=== PATIENT | female | born 1950 | race Caucasian/White ===

== ENCOUNTER 2020-08-21 08:50 | Day surgery (SDC) | payer MEDICARE, OTHER ==
[~2020-08-21] VITALS: Ht 170.2 cm; Wt 70.9 kg
--- NOTE | ~2020-08-21 | OR ---
[facility] [address] [place], [place] [address] Draft DATE OF OPERATION: 08/21/2020 SURGEON: Alverto Keenan MD LOCATION: [facility] Outpatient Surgery. PREOPERATIVE DIAGNOSIS: Left vocal cord lesion with dysphagia, hoarseness. POSTOPERATIVE DIAGNOSIS: Left vocal cord lesion with dysphagia, hoarseness. PROCEDURE: Direct laryngoscopy, biopsy of left vocal cord lesion, and an esophagoscopy. ANESTHESIA: General orotracheal; HUMBLE Rosa. PREOPERATIVE HISTORY: Mine is a 69-year-old lady with history of a vocal cord lesion several years ago, which was causing hoarseness. Biopsy in the OR was benign. She has had continued hoarseness. Followup has shown thickening of the left vocal cord. She was taken to the operating room for direct laryngoscopy and cervical esophagoscopy for dysphagia. OPERATIVE PROCEDURE AND FINDINGS: After informed consent, the patient was taken to the operating room and placed in supine position where general orotracheal anesthesia was induced. The patient and procedure were verified. The patient was repositioned. Anterior commissure laryngoscope was used to visualize the hypopharynx and larynx. Everything normal, except the left vocal cord. Nearly the whole length of the vocal cord was thickened, edematous. No leukoplakia per se, just thickened slightly hyperkeratotic mucosa. The left vocal cord was basically stripped. Lesion removed with the cup forceps sent to pathology in formalin. Minimal bleeding stopped afterwards. No other abnormalities in the larynx. Cervical esophagus scope was then passed down to about 20 cm from the incisors. No abnormalities seen looking in or out. No biopsies taken. Pharynx suctioned clear of blood secretions. The patient was then awakened, extubated, transported to recovery room in good condition. No complications. PATIENT NAME: MINE CHOWDARY OPERATIVE REPORT DATE OF : 54 REPORT #: [id number] PHYSICIAN: ALVERTO KEENAN MD PCP: NELLI SORIANO MD REPORT IS CONFIDENTIAL AND NOT TO BE RELEASED WITHOUT AUTHORIZATION [address] [place], [place] [address] Draft BLOOD LOSS: Minimal. SPECIMEN: Left vocal cord lesion to pathology. DRAINS: No drains. Alverto Keenan MD GC/MEGANL /[id number] Copies: ~ PATIENT NAME: MINE CHOWDARY OPERATIVE REPORT DATE OF : 54 REPORT #: [id number] PHYSICIAN: ALVERTO KEENAN MD PCP: NELLI SORIANO MD REPORT IS CONFIDENTIAL AND NOT TO BE RELEASED WITHOUT AUTHORIZATION
[~2020-08-21 08:50] MED LIST: FENOFIBRATE40 MG PO; HYDROCHLOROTHIA25 MG PO; LISINOPRIL40 MG PO; MELOXICAM15 MG PO; NEURONTIN100 MG PO; PROZAC10 MG PO; SIMVASTATIN20 MG PO; TRAZODONE HCL150 MG PO; TYLENOL325 MG PO; WELLBUTRIN SR100 MG
--- NOTE | 2020-08-21 10:49 | NUR ---
08/21/20 1049 Fany Senior 1034 PATIENT ARRIVES TO PACU UNRESPONSIVE TO PAIN. JAW THRUST BEING HELD TO MANAGE AIRWAY. MASK AT 10 LITERS. PATIENT HAS DECREASED RESP WITH SATS <70%. SYRUPER AT BEDSIDE. 1036 ORAL AIRWAY PLACED. RN CONTINUES TO HOLD JAW THRUST TO MAINTAIN AIRWAY. NON REBREATHER REPLACED MASK AT 15 LITERS. SATS <80%. ST DEPRESSION NOTED, NEW PER SYRUPER. NO NEW ORDERS. 1037 PATIENT CONTINUES TO BE UNRESPONSIVE TO PAIN. ORAL AIRWAY IN PLACE. RN CONTINUES TO HOLD JAW THRUST. NON-REBREATHER AT 15 LITERS. SATS >90%. 1040 PATIENT CONTINUES TO BE UNRESPONSIVE TO PAIN. ORAL AIRWAY IN PLACE, NO LONGER REQUIRES JAW THRUST. RESP EVEN AND UNLABORED, NONPREBREATHER CONTINUED AT [address] DEPRESSION IMPROVING, BUT NOT TO BASELINE. SYRUPER AWARE. 1045 PATIENT CONTINUES TO BE UNRESPONSIVE TO PAIN. ORAL AIRWAY IN PLACE. RESP EVEN AND UNLABORED, NON BREATHER CONTINUED AT [address] DEPRESSION PRESENT BUT IMPROVED. EKG ORDERED.
--- NOTE | 2020-08-21 12:45 | NUR ---
1120: PATIENT BACK IN DAY SURGERY ROOM FROM PACU. DENIES PAIN. DENIES NAUSEA. COFFEE GIVEN TO PATIENT PER REQUEST. VS CHECKED. IV SITE WNL. SCDs ON. CALL LIGHT WITHIN REACH. 1155: DISCHARGE INSTRUCTIONS GIVEN TO PATIENT. PATIENT TOLERATED COFFEE. PATIENT ASSISTED OOB AND TO WALK AROUND ROOM. GAIT STEADY. PATIENT GETTING DRESSED INDEPENDENTLY. 1220: PATIENT GIVEN SECOND CUP OF COFFEE. WALKED INDEPENDENTLY TO AND FROM BATHROOM. IV DC'D WNL. TIP INTACT. DRESSING APPLIED. PATIENT DISCHARGED TO HOME WITH DAUGHTER VIA WHEELCHAIR.
--- NOTE | 2020-08-23 13:43 | EKG ---
[facility] [address] [facility] [place], [place] [address] Signed Normal sinus rhythm Normal ECG No previous ECGs available Confirmed by DYLON RASHEED MD ([id number]) on 08/23/2020 1:43:33 PM Electronically Signed By: DYLON RASHEED MD 08/23/20 1343 PATIENT NAME: OLINDA CHOWDARY Electrocardiogram DATE OF : 54 PHYSICIAN: DYLON RASHEED MD REPORT #: [id number] REPORT IS CONFIDENTIAL AND NOT TO BE RELEASED WITHOUT AUTHORIZATION
--- NOTE | 2020-08-23 13:44 | EKG ---
[facility] [address] [facility] [place], [place] [address] Signed Normal sinus rhythm Low voltage QRS Nonspecific ST and T wave abnormality Prolonged QT Abnormal ECG When compared with ECG of 21-AUG-2020 09:19, (Unconfirmed) Nonspecific T wave abnormality, worse in Anterolateral leads Confirmed by DYLON RASHEED MD ([id number]) on 08/23/2020 1:43:48 PM Electronically Signed By: DYLON RASHEED MD 08/23/20 1344 PATIENT NAME: OLINDA CHOWDARY Electrocardiogram DATE OF : 54 PHYSICIAN: DYLON RASHEED MD REPORT #: [id number] REPORT IS CONFIDENTIAL AND NOT TO BE RELEASED WITHOUT AUTHORIZATION
--- NOTE | 2020-08-23 16:38 | PATH ---
[facility] [address] [place], [place] [address] Signed SPECIMEN(S): A LEFT VOCAL CORD BIOPSY SPECIMEN SOURCE: A. LEFT VOCAL CORD BIOPSY CLINICAL HISTORY: Pre: Hoarseness, dysphagia. Post: Direct laryngoscopy, cervical rigid esophagoscopy. FINAL PATHOLOGIC DIAGNOSIS: Vocal cord, left, biopsy: - Vocal cord nodule/polyp. - Negative for dysplasia or malignancy. NAL:cml:C2NR MICROSCOPIC EXAMINATION: Histologic sections of all submitted blocks are examined by light microscopy. These findings, together with the gross examination, support the pathologic diagnosis. GROSS DESCRIPTION: The specimen, labeled "CM," and designated on the requisition "left vocal cord biopsy," is received in formalin and consists of multiple fragments of pink-retana tissue (1.4 x 0.6 x 0.3 cm in aggregate). The specimen is submitted entirely in cassette A1. AC (under the direct supervision of a pathologist) The Gross Description was prepared using a voice recognition system. The report was reviewed for accuracy; however, sound-alike word errors, addition and/or deletions may occur. If there is any question about this report, please contact Client Services. PERFORMING LABORATORY: The technical component was performed by [facility], [address] [place] [id number] (Biblical Languages Professor: Bibiana Page MD; CLIA# [id number]). [facility], [address] [address] (CLIA# [id number]). Diagnostician: Adina Stevens MD Pathologist Electronically Signed 08/23/2020 PATIENT NAME: OLINDA CHOWDARY PATHOLOGY DATE OF : 54 REPORT #: [id number] PHYSICIAN: [facility] PCP: NELLI SORIANO MD REPORT IS CONFIDENTIAL AND NOT TO BE RELEASED WITHOUT AUTHORIZATION [address] [address] Signed Copies: ~ PATIENT NAME: OLINDA CHOWDARY PATHOLOGY DATE OF : 54 REPORT #: [id number] PHYSICIAN: [facility] PCP: NELLI SORIANO MD REPORT IS CONFIDENTIAL AND NOT TO BE RELEASED WITHOUT AUTHORIZATION
== END 2020-08-21 12:20 | disposition home or self-care (01) ==
LOC: OPS 08:50 → DS 08:50 → OPS 10:45
PROVIDERS: ATTEND Otolaryngology
PROC: 0CBV8ZX Excision of Left Vocal Cord, Via Natural or Artificial Opening Endoscopic, Diagnostic (ICD-10-PCS; principal; 2020-08-21 10:45)
DX: J38.2 Nodules of vocal cords (principal); R13.10 Dysphagia, unspecified; E78.00 Pure hypercholesterolemia, unspecified; Z87.891 Personal history of nicotine dependence; Z88.0 Allergy status to penicillin
CPT/HCPCS: 00320; 88305; 93005; 93010; 99406; J0330; J1100; J1885; J2250; J2405; J2704; J2765; J3010; J7121

== ENCOUNTER 2021-11-23 18:13 | Emergency (ER) | payer MEDICARE, OTHER ==
[~2021-11-23] VITALS: Ht 170.2 cm; Wt 70.8 kg
[2021-11-23] MEDS ORDERED: HYDROCODON-ACE1 EA10 PO (19:41)
== END 2021-11-23 19:56 | disposition home or self-care (01) ==
LOC: ED 18:13
DX: S92.335A Nondisplaced fracture of third metatarsal bone, left foot, initial encounter for closed fracture (principal); S92.345A Nondisplaced fracture of fourth metatarsal bone, left foot, initial encounter for closed fracture; W22.8XXA Striking against or struck by other objects, initial encounter; I10 Essential (primary) hypertension; F17.200 Nicotine dependence, unspecified, uncomplicated; Z88.0 Allergy status to penicillin; Z79.899 Other long term (current) drug therapy
CPT/HCPCS: 73630; 99283-25; A9270